=== PATIENT | female | born 1995 | race Caucasian/White ===

== ENCOUNTER 2025-01-02 07:58 | Emergency (ER) | payer BC, SELFPAY ==
[~2025-01-02] VITALS: Ht 165.1 cm; Wt 77.3 kg
[2025-01-02] MEDS ORDERED: IBUP200C25 PO (10:18)
[2025-01-02] MEDS: ACETAMINOPHEN 500 MG TAB PO ONE (11:01)
[2025-01-02 12:14] LABS: BASO # 0.1 10^3/uL (0.0-0.2); BASO % 0.8 % (0.0-1.0); EOS # 0.2 10^3/uL (0.0-0.5); EOS % 2.6 % (0.0-3.0); LYMPH # 2.3 10^3/uL (1.5-5.0); LYMPH % 29.9 % (24.0-44.0); MONO # 0.5 10^3/uL (0.0-0.8); MONO % 6.9 % (2.0-8.0); NEUTROPHILS # 4.6 10^3/uL (1.5-8.5); NEUTROPHILS % 59.7 % (36.0-66.0); PLATELET COUNT, AUTOMATED 218 10^3/uL (150-450)
[2025-01-02] MEDS: ONDANSETRON 4MG 2ML VIAL IV ONE (12:17)
[2025-01-02] MEDS: NS (Normal Saline) 0.9% 1,000 ML IV ONE (12:17)
[2025-01-02 12:38] LABS: CALCIUM LEVEL 9.3 MG/DL (8.5-10.1); CARBON DIOXIDE LEVEL 27 MMOL/L (20-31); CHLORIDE LEVEL 103 MMOL/L (98-107); CREATININE FOR GFR 0.88 MG/DL (0.55-1.30); GLOMERULAR FILTRATION RATE > 90.0 (>60); POTASSIUM SERUM 4.4 MMOL/L (3.5-5.1); SODIUM LEVEL 139 MMOL/L (136-145)
[2025-01-02 14:05] VITALS: BP 135/81; TEMP 97.3; O2SAT 100
== END 2025-01-02 14:06 | disposition home or self-care (01) ==
LOC: M ED 07:58
DX: R51.9 Headache, unspecified (principal); L55.9 Sunburn, unspecified; Z79.1 Long term (current) use of non-steroidal anti-inflammatories (NSAID)
CPT/HCPCS: 80048; 85025; 96361; 96374; 99284; J2405

== ENCOUNTER 2025-03-20 18:48 | Emergency (ER) | payer SELFPAY ==
[~2025-03-20] VITALS: Ht 165.1 cm; Wt 80.6 kg
[~2025-03-20 18:48] MED LIST: IBUP200C25 PO
[2025-03-21 01:13] LABS: PLATELET COUNT, AUTOMATED 223 10^3/uL (150-450)
[2025-03-21 01:14] LABS: URINE PREG TEST NEGATIVE (NEGATIVE)
[2025-03-21 01:58] LABS: ALT/SGPT 16 U/L (7.0-40); AST/SGOT 13 U/L (<34); CALCIUM LEVEL 9.6 MG/DL (8.5-10.1); CARBON DIOXIDE LEVEL 27 MMOL/L (20-31); CHLORIDE LEVEL 104 MMOL/L (98-107); CREATININE FOR GFR 0.83 MG/DL (0.55-1.30); GLOMERULAR FILTRATION RATE > 90.0 (>60); POTASSIUM SERUM 4.3 MMOL/L (3.5-5.1); SODIUM LEVEL 140 MMOL/L (136-145)
[2025-03-21 04:00] VITALS: BP 120/65; TEMP 96; O2SAT 99
== END 2025-03-21 04:15 | disposition home or self-care (01) ==
LOC: M ED 18:48
DX: I10 Essential (primary) hypertension (principal); R51.9 Headache, unspecified; R07.89 Other chest pain

== ENCOUNTER 2025-05-11 08:38 | Emergency (ER) | payer OTHER, SELFPAY ==
[~2025-05-11] VITALS: Ht 165.1 cm; Wt 79.6 kg
[2025-05-11 08:40] VITALS: TEMP 97
[2025-05-11] MEDS: KETOROLAC 30 MG/ML 1 ML VIAL IM ONE (10:02)
[2025-05-11 11:00] VITALS: BP 108/70
[2025-05-11 11:15] VITALS: O2SAT 100
[2025-05-11] MEDS ORDERED: MEDR4TAB PO (11:23)
[2025-05-11] MEDS ORDERED: CYCL-707 PO (11:23)
== END 2025-05-11 11:36 | disposition home or self-care (01) ==
LOC: M ED 08:38
DX: R68.84 Jaw pain (principal); M54.2 Cervicalgia; W50.0XXA Accidental hit or strike by another person, initial encounter; Y92.129 Unspecified place in nursing home as the place of occurrence of the external cause; Y93.9 Activity, unspecified; Y99.9 Unspecified external cause status
CPT/HCPCS: 70486; 72125; 93005; 96372; 99284; J1885

== ENCOUNTER 2025-05-13 14:51 | Emergency (ER) | payer OTHER ==
[~2025-05-13] VITALS: Ht 165.1 cm; Wt 78.6 kg
[~2025-05-13 14:51] MED LIST changes: +CYCL-707 PO; +MEDR4TAB PO
[2025-05-13] MEDS: METHOCARBAMOL 1,000 MG/10 ML VIAL IV ONE (16:31)
[2025-05-13] MEDS: KETOROLAC 30 MG/ML 1 ML VIAL IV ONE (16:31)
[2025-05-13] MEDS: ACETAMINOPHEN *IV* 1,000 MG in IV 1 EA IV ONE (16:31)
[2025-05-13] MEDS: MORPHINE 4 MG/ML 1 ML VIAL IV ONE (18:12)
[2025-05-13] MEDS: OXYCODONE/APAP 5MG/325MG(HOME DOSE PACK) PO ONE (21:44)
[2025-05-13 21:55] VITALS: BP 115/77; TEMP 97.2; O2SAT 96
== END 2025-05-13 21:57 | disposition home or self-care (01) ==
LOC: M ED 14:51
DX: M51.26 Other intervertebral disc displacement, lumbar region (principal); Z79.899 Other long term (current) drug therapy
CPT/HCPCS: 72110; 72148; 96365; 96375; 99284; J0134; J1885; J2800

== ENCOUNTER 2025-05-19 10:30 | Emergency (ER) | payer OTHER ==
[~2025-05-19] VITALS: Ht 165.1 cm; Wt 79.5 kg
[2025-05-19] MEDS ORDERED: IBUP600T42 PO (11:47)
[2025-05-19] MEDS ORDERED: GABA-1171 PO (11:47)
[2025-05-19 11:51] VITALS: BP 154/93; TEMP 98.6; O2SAT 100
== END 2025-05-19 12:03 | disposition home or self-care (01) ==
LOC: M ED 10:30
DX: M54.9 Dorsalgia, unspecified (principal)